=== PATIENT | female | born 1990 | race Two or more races ===

== ENCOUNTER → 2016-11-16 | Outpatient (CLI) | payer OTHER | END | disposition home or self-care (01) | LOC: CFH 08:04 | PROVIDERS: ATTEND Family Medicine | DX: N64.4 Mastodynia (principal) ==

== ENCOUNTER → 2018-02-20 | Outpatient (CLI) | payer OTHER | END | disposition home or self-care (01) | LOC: CFH 13:36 | PROVIDERS: ATTEND Family Medicine | DX: N63.20 Unspecified lump in the left breast, unspecified quadrant (principal) ==

== ENCOUNTER → 2018-03-01 | Outpatient (CLI) | payer OTHER ==
[~2018-03-01] MED LIST: LIDOCAINE 1%, 20ML ONE; LIDOCAINE 1%-EPI 1:100K, 20ML ONE; SODIUM BICARBONATE 4.0%, 5ML ONE
== END | disposition home or self-care (01) ==
LOC: CFH 07:22
PROVIDERS: ATTEND Family Medicine
DX: D24.2 Benign neoplasm of left breast (principal); N60.12 Diffuse cystic mastopathy of left breast; N60.92 Unspecified benign mammary dysplasia of left breast
CPT/HCPCS: 19083; 88305; J3490

== ENCOUNTER 2018-09-25 08:45 | Outpatient (CLI) | payer OTHER ==
[2018-09-25] MEDS ORDERED: NONE PER PT (09:27)
== END 2018-09-25 23:59 | disposition home or self-care (01) ==
LOC: STAR 08:45
PROVIDERS: ATTEND Surgery
DX: Z02.9 Encounter for administrative examinations, unspecified (principal)

== ENCOUNTER 2018-10-05 06:30 | Day surgery (SDC) | payer OTHER ==
[~2018-10-05] VITALS: Ht 165.1 cm; Wt 65.0 kg
[~2018-10-05 06:30] MED LIST changes: -LIDOCAINE 1%, 20ML ONE; -LIDOCAINE 1%-EPI 1:100K, 20ML ONE; +NONE PER PT; -SODIUM BICARBONATE 4.0%, 5ML ONE
[2018-10-05] MEDS ORDERED: LACTATED RINGERS 1,000 ML IV SCH (07:17)
[2018-10-05] MEDS ORDERED: MIDAZOLAM 1 MG/ML, 2ML ONE ×2 (07:27→09:40)
[2018-10-05] MEDS ORDERED: FENTANYL PF 250 MCG/5ML ONE ×2 (07:27→09:40)
[2018-10-05] MEDS ORDERED: ONDANSETRON ODT 8 MG PO ONE (07:30)
[2018-10-05] MEDS ORDERED: GABAPENTIN 300 MG CAPSULE PO ONE (07:30)
[2018-10-05] MEDS ORDERED: ACETAMINOPHEN 500 MG TABLET PO ONE (07:30)
[2018-10-05] MEDS ORDERED: SCOPOLAMINE PATCH, 1.5MG PATCH.TD72 TD ONE (07:30)
[2018-10-05 07:42] LABS: HCG UR SG 1.012 (1.003-1.030)
[2018-10-05] MEDS ORDERED: BUPIVACAINE/PF-EPI 0.5% 1:200K ONE (08:14)
[2018-10-05] MEDS ORDERED: HYDROmorphone 2 MG/ML, 1ML IVPush PRN (09:00)
[2018-10-05] MEDS ORDERED: FENTANYL PF 100 MCG/2ML IV PRN (09:00)
[2018-10-05] MEDS ORDERED: ONDANSETRON 2MG/ML, 2ML IV PRN (09:00)
[2018-10-05] MEDS ORDERED: OXYcodone 5 MG/5 ML ORAL.SOL UDC PO PRN (09:00)
[2018-10-05] MEDS ORDERED: PROMETHAZINE 25 MG/ML, 1ML IV PRN (09:00)
[2018-10-05] MEDS ORDERED: ONDANSETRON ODT 8 MG PO PRN (09:00)
[2018-10-05] MEDS ORDERED: LORazepam 2 MG/ML, 1ML IVPush PRN (09:00)
[2018-10-05] MEDS ORDERED: DEXAMETHASONE 4 MG/ML, 1ML ONE (10:08)
[2018-10-05] MEDS ORDERED: SUCCINYLCHOLINE 20 MG/ML, 10ML ONE (10:08)
[2018-10-05] MEDS ORDERED: CEFAZOLIN 1,000 MG ONE (10:08)
[2018-10-05] MEDS ORDERED: NEOSTIGMINE 1 MG/ML, 10ML ONE (10:08)
[2018-10-05] MEDS ORDERED: PROPOFOL 10 MG/ML, 20ML ONE (10:08)
[2018-10-05] MEDS ORDERED: ONDANSETRON 2MG/ML, 2ML ONE (10:08)
[2018-10-05] MEDS ORDERED: GLYCOPYRROLATE 0.2MG/1ML, 5ML ONE (10:08)
[2018-10-05] MEDS ORDERED: ROCURONIUM 10MG/ML,5ML ONE (10:08)
== END 2018-10-05 11:45 | disposition home or self-care (01) ==
LOC: OUT 06:30
PROVIDERS: ATTEND Surgery
DX: D24.2 Benign neoplasm of left breast (principal)
CPT/HCPCS: 19120; 81025; 88305; J0330; J0690; J1100; J2250; J2405; J2704; J2710; J3010; J3490; J7120; Q0162

== ENCOUNTER 2020-11-09 15:10 | Inpatient (IN) | payer OTHER ==
[~2020-11-09] VITALS: Ht 165.1 cm; Wt 86.3 kg
[2020-11-09 15:25] VITALS: BP 120/63
[2020-11-09] MEDS: LACTATED RINGERS 1,000 ML IV SCH ×2 (17:26→18:20)
[2020-11-09] MEDS ORDERED: TERBUTALINE 1 MG/ML, 1ML SQ PRN (17:30)
[2020-11-09] MEDS ORDERED: METOCLOPRAMIDE 5 MG/ML, 2ML IVPush PRN (17:30)
[2020-11-09] MEDS ORDERED: ONDANSETRON 2MG/ML, 2ML IVPush PRN (17:30)
[2020-11-09] MEDS ORDERED: OXYTOCIN 30U/ 0.9% NaCL 500ML 500 ML IV ONE (17:30)
[2020-11-09] MEDS ORDERED: SODIUM CITRATE/CITRIC ACID 30 ML UDC PO PRN (17:30)
[2020-11-09] MEDS ORDERED: FENTANYL PF 100 MCG/2ML IVPush PRN (17:30)
[2020-11-09] MEDS ORDERED: FENTANYL PF 100 MCG/2ML IV PRN (17:30)
[2020-11-09] MEDS ORDERED: D5%-LACTATED RINGERS 1,000 ML IV SCH (17:30)
[2020-11-09] MEDS ORDERED: OXYTOCIN 30U/ 0.9% NaCL 500ML 500 ML ONE (17:42)
[2020-11-09] MEDS ORDERED: NEWBORN KIT ONE (17:42)
[2020-11-09 17:44] LABS: BASOPHILS % (AUTO) 1 % (0-1); EOSINOPHILS % (AUTO) 0 % (1-7); LYMPHOCYTES % (AUTO) 11 % (22-44); MEAN CORPUSCULAR HEMOGLOBIN 30.6 pg (27.0-34.8); MEAN CORPUSCULAR HGB CONC 34.4 g/dL (32.4-35.8); MEAN PLATELET VOLUME 9.4 fL (7.4-10.4); MONOCYTES % (AUTO) 7 % (2-9); NEUTROPHILS % (AUTO) 82 % (42-75); PLATELET COUNT 202 x10^3/uL (130-400); RED BLOOD COUNT 4.38 x10^6/uL (3.82-5.3); RED CELL DISTRIBUTION WIDTH 15.9 % (9.6-15.2)
[2020-11-09] MEDS ORDERED: TERBUTALINE 1 MG/ML, 1ML IVPush PRN (17:45)
[2020-11-09 17:49] LABS: MD NO
[2020-11-09] MEDS ORDERED: FENTANYL/BUPIV./NS/PF 250 ML EPIDCONT ONE (18:21)
[2020-11-09] MEDS ORDERED: LACTATED RINGERS 1,000 ML IVBOLUS PRN (19:00)
[2020-11-09] MEDS ORDERED: NALOXONE 0.4 MG/ML, 1ML IVPush PRN (19:00)
[2020-11-09] MEDS ORDERED: LACTATED RINGERS 1,000 ML IV SCH (19:00)
[2020-11-09] MEDS ORDERED: EPHEDRINE 50 MG/ML, 1ML IVPush PRN (19:00)
[2020-11-09] MEDS ORDERED: FENTANYL/BUPIV./NS/PF 250 ML EPIDCONT SCH (19:00)
[2020-11-09] MEDS ORDERED: OXYcodone/APAP 5/325MG TABLET PO PRN ×2 (22:30)
[2020-11-09] MEDS ORDERED: SIMETHICONE 80 MG CHEW TAB PO PRN (22:30)
[2020-11-09] MEDS: OXYTOCIN 30U/ 0.9% NaCL 500ML 500 ML IV SCH (22:53)
[2020-11-10] VITALS (7 sets, daily range): BP systolic 92–109; BP diastolic 58–73
[2020-11-10] MEDS: IBUPROFEN 600 MG TABLET PO PRN ×3 (04:49→22:06)
[2020-11-10 06:40] LABS: BASOPHILS % (AUTO) 0 % (0-1); EOSINOPHILS % (AUTO) 0 % (1-7); LYMPHOCYTES % (AUTO) 10 % (22-44); MEAN CORPUSCULAR HEMOGLOBIN 30.6 pg (27.0-34.8); MEAN CORPUSCULAR HGB CONC 33.7 g/dL (32.4-35.8); MEAN PLATELET VOLUME 9.6 fL (7.4-10.4); MONOCYTES % (AUTO) 5 % (2-9); NEUTROPHILS % (AUTO) 84 % (42-75); PLATELET COUNT 181 x10^3/uL (130-400); RED CELL DISTRIBUTION WIDTH 15.7 % (9.6-15.2)
[2020-11-10 06:43] LABS: MD NO
[2020-11-10] MEDS: PRENATAL VIT/IRON/FA 1 EACH TABLET PO SCH (07:31)
[2020-11-10] MEDS: OXYTOCIN 30U/ 0.9% NaCL 500ML 500 ML IV SCH ×2 (07:50→18:30)
[2020-11-10] MEDS: DOCUSATE 100 MG CAPSULE PO PRN (19:24)
[2020-11-11] MEDS: OXYTOCIN 30U/ 0.9% NaCL 500ML 500 ML IV SCH (02:24)
[2020-11-11 04:02] VITALS: BP 102/69
[2020-11-11 07:45] VITALS: BP 113/75
[2020-11-11] MEDS: DOCUSATE 100 MG CAPSULE PO PRN (07:53)
[2020-11-11] MEDS: IBUPROFEN 600 MG TABLET PO PRN (07:53)
[2020-11-11] MEDS: PRENATAL VIT/IRON/FA 1 EACH TABLET PO SCH (07:53)
[2020-11-11] MEDS ORDERED: PREN1TAB60 PO (11:04)
[2020-11-11] MEDS ORDERED: IBUP-1222 PO (11:05)
== END 2020-11-11 12:25 | disposition home or self-care (01) | DRG 807 ==
LOC: LDOP 15:10 → LDIP 17:13 → 2NW 11-10 00:08
PROVIDERS: ADMIT Obstetrics & Gynecology; ATTEND Obstetrics & Gynecology
PROC: 10E0XZZ Delivery of Products of Conception, External Approach (ICD-10-PCS; principal; 2020-11-09)
PROC: 0KQM0ZZ Repair Perineum Muscle, Open Approach (ICD-10-PCS; 2020-11-09)
PROC: 10907ZC Drainage of Amniotic Fluid, Therapeutic from Products of Conception, Via Natural or Artificial Opening (ICD-10-PCS; 2020-11-09)
PROC: 3E0R3BZ Introduction of Anesthetic Agent into Spinal Canal, Percutaneous Approach (ICD-10-PCS; 2020-11-09)
PROC: 00HU33Z Insertion of Infusion Device into Spinal Canal, Percutaneous Approach (ICD-10-PCS; 2020-11-09)
DX: O99.02 Anemia complicating childbirth (principal); Z37.0 Single live birth; Z20.822 Contact with and (suspected) exposure to COVID-19; O70.1 Second degree perineal laceration during delivery; Z3A.38 38 weeks gestation of pregnancy; D50.9 Iron deficiency anemia, unspecified
CPT/HCPCS: 36415; 85025; 86592; 86850; 86900; 87635; G0378; J2590; J7120